=== PATIENT | male | born 1955 | race African-American/Black ===

== ENCOUNTER 2019-04-07 18:25 | Emergency (ER) | payer OTHER ==
[~2019-04-07] VITALS: Ht 172.7 cm; Wt 76.2 kg
[~2019-04-07 18:25] MED LIST: LISI2.5T2 PO; METO50TA7 PO; SIMV-46 PO; TAMS-12 PO
--- NOTE | 2019-04-07 18:40 | NUR ---
MIDSTERNAL CHEST DISCOMFORT, LUE NUMBNESS THAT STARTED LAST NIGHT, 2100. PATIENT A/OX4, BREATHING EVEN AND UNLABORED, NOS OB NOTED, CHANGED INTO GOWN, ATTACHED TO THE LABORER POWERHOUSE. NO DISTRESS NOTED. DR ESPINO AT BEDSIDE FOR EVAL.
--- NOTE | 2019-04-07 18:50 | NUR ---
IV LINE ESTABLISHED, BLOOD DRAWN AND SENT TO LAB.
[2019-04-07] MEDS ORDERED: ASPIRIN 81 MG TAB.CHEW ONE (18:51)
[2019-04-07 18:53] LABS: BASOPHILS % (AUTO) 0.4 % (0.0-2.0); HEMATOCRIT 36 % (39-51); HEMOGLOBIN 11.7 g/dL (13.5-17.5); LYMPHOCYTES # (AUTO) 1.4 /CMM (0.8-4.8); LYMPHOCYTES % (AUTO) 37.8 % (20.0-44.0); MEAN CORPUSCULAR HGB CONC 32 g/dl (31.0-36.0); MEAN CORPUSCULAR VOLUME 86 fL (80-96); MONOCYTES # (AUTO) 0.4 /CMM (0.1-1.30); MONOCYTES % (AUTO) 11.9 % (2.0-12.0); NEUTROPHILS # (AUTO) 1.7 /CMM (1.8-8.9); NEUTROPHILS % (AUTO) 45.9 % (43.0-81.0); PLATELET COUNT (AUTO) 167 /CMM (150-450); RED BLOOD CELL COUNT(AUTO) 4.22 MIL/uL (4.5-6.0); WHITE BLOOD COUNT (AUTO) 3.7 K/uL (4.3-11.0)
--- NOTE | 2019-04-07 18:54 | NUR ---
ASPIRIN 162MG CANCELLED, PER PATIENT HE TOOK ASA 81MG IN AM AND ANOTHER ASA 81MG AT 4PM. DR. ESPINO MADE AWARE AND CANCELLED ORDER FOR ASA.
[2019-04-07] MEDS ORDERED: ASPIRIN 81 MG TAB.CHEW PO ONE (19:00)
[2019-04-07 19:03] LABS: CALCIUM, SERUM 8.4 mg/dL (8.5-10.1); CARBON DIOXIDE 29 mmol/L (21-32); CHLORIDE 106 mmol/L (98-107); CREATININE 1.6 mg/dL (0.6-1.3); GLUCOSE 113 mg/dL (74-106); POTASSIUM 3.7 mmol/L (3.5-5.1); SODIUM SERUM 143 mmol/L (136-145); UREA NITROGEN, BLOOD 14 mg/dL (7-18)
--- NOTE | 2019-04-07 19:13 | NUR ---
Fabian bowling in EDM - 04/07/19 at 2020 by DIONICIO REDRAWN TROPONIN LEVELS AT 2130
--- NOTE | 2019-04-07 19:19 | NUR ---
REPORT GIVEN TO CYNDI COVINGTON.
--- NOTE | 2019-04-07 19:22 | NUR ---
BLOOD DRAW AT 2130 FOR TROPONIN LEVELS
--- NOTE | 2019-04-07 19:22 | NUR ---
PT CAME FROM HOME WITH C/O MIDSTERNAL CHEST, FELT A NUMBNESS THAT RADIATE TO LEFT ARM THAT STARTED LAST NIGHT AROUND 2100. 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 AAOX4. NO SOB. BREATHING EVEN AND UNLABORED. NAD. TROPONIN RESULTS NEGATIVE. CHEST XRAY TAKEN. AWAITING MD ORDERS.
--- NOTE | 2019-04-07 20:19 | NUR ---
WINNIE HURST AT BEDSIDE
--- NOTE | 2019-04-07 23:08 | NUR ---
IV removed. Catheter intact and site benign. Pressure and 4x4 applied to site. No bleeding noted. Patient discharged to home in stable condition. Written and verbal after care instructions given. Patient verbalizes understanding of instruction. ambulatory with a steady gait noted. pt aaox4 no acute distress noted, resp even and unlabored. pt denies pain or discomfort at this time. pt at bedside to take tp home.
[2019-04-07 23:09] VITALS: BP 129/71
== END 2019-04-07 23:09 | disposition home or self-care (01) ==
LOC: ER 18:26
DX: R07.89 Other chest pain (principal); R00.1 Bradycardia, unspecified; I10 Essential (primary) hypertension; E78.5 Hyperlipidemia, unspecified; Z98.890 Other specified postprocedural states; Z79.899 Other long term (current) drug therapy
CPT/HCPCS: 36415; 71045-TC; 80048-TC; 84484-TC; 85025-TC

== ENCOUNTER 2020-02-04 22:33 | Inpatient (IN) | payer OTHER ==
[~2020-02-04] VITALS: Ht 172.7 cm; Wt 77.1 kg
[2020-02-04] MEDS ORDERED: MORPHINE SULFATE INJ 2 MG/ML DISP.SYRIN ONE (23:14)
[2020-02-04] MEDS ORDERED: ONDANSETRON HCL/PF 4 MG/2 ML VIAL ONE (23:14)
--- NOTE | 2020-02-04 23:15 | NUR ---
PT BIBSELF C/O ABDOMINAL CRAMPING X1 DAY. RECENT COLONOSCOPY X4 DAYS AGO. -N/V/D. PT AAOX4,VSS, RESPIRATIONS EVEN AND UNLABORED ON RA W/ NAD NOTED. PT CONNECTED TO THE MONITOR AND POX.
--- NOTE | 2020-02-04 23:20 | NUR ---
BLOOD COLLECTED AND SENT TO LAB
[2020-02-04] MEDS ORDERED: ONDANSETRON HCL/PF 4 MG/2 ML VIAL IVP ONE (23:30)
[2020-02-04] MEDS ORDERED: MORPHINE SULFATE INJ 2 MG/ML DISP.SYRIN IV ONE (23:30)
[2020-02-04] MEDS ORDERED: IV NS 0.9% 1,000 ML BAG IV ONE (23:30)
[2020-02-05 00:28] LABS: BASOPHILS % (AUTO) 0.3 % (0.0-2.0); EOSINOPHILS % (AUTO) 1.8 % (0.0-6.0); HEMATOCRIT 38 % (39-51); HEMOGLOBIN 12.1 g/dL (13.5-17.5); LYMPHOCYTES # (AUTO) 0.3 /CMM (0.8-4.8); LYMPHOCYTES % (AUTO) 8.9 % (20.0-44.0); MEAN CORPUSCULAR HGB CONC 32 g/dl (31.0-36.0); MEAN CORPUSCULAR VOLUME 85 fL (80-96); MONOCYTES # (AUTO) 0.5 /CMM (0.1-1.30); MONOCYTES % (AUTO) 13.1 % (2.0-12.0); NEUTROPHILS # (AUTO) 2.7 /CMM (1.8-8.9); NEUTROPHILS % (AUTO) 75.9 % (43.0-81.0); PLATELET COUNT (AUTO) 143 /CMM (150-450); RED BLOOD CELL COUNT(AUTO) 4.44 MIL/uL (4.5-6.0); WHITE BLOOD COUNT (AUTO) 3.6 K/uL (4.3-11.0)
--- NOTE | 2020-02-05 00:29 | NUR ---
URINE COLLECTED AND SENT TO LAB
[2020-02-05 00:47] LABS: ALANINE AMINOTRANSFERASE 773 U/L (12-78); ALKALINE PHOSPHATASE 139 U/L (46-116); ASPARTATE AMINOTRANSFERASE 1150 U/L (15-37); BILIRUBIN,DIRECT 0.5 mg/dL (0.0-0.2); CALCIUM, SERUM 8.7 mg/dL (8.5-10.1); CARBON DIOXIDE 28 mmol/L (21-32); CHLORIDE 102 mmol/L (98-107); CREATININE 1.5 mg/dL (0.6-1.3); GLUCOSE 102 mg/dL (74-106); LIPASE 229 U/L (73-393); POTASSIUM 4.1 mmol/L (3.5-5.1); SODIUM SERUM 139 mmol/L (136-145); TOTAL PROTEIN, SERUM 7.2 g/dL (6.4-8.2); UREA NITROGEN, BLOOD 13 mg/dL (7-18)
[2020-02-05 00:55] LABS: APPEARANCE,URINE CLEAR (CLEAR); BILIRUBIN,URINE NEGATIVE (NEGATIVE); BLOOD, URINE NEGATIVE Ery/uL (NEGATIVE); COLOR,URINE YELLOW (YELLOW); KETONES,URINE NEGATIVE (NEGATIVE); LEUKOCYTE ESTERASE ,URINE NEGATIVE (NEGATIVE); NITRITE, URINE NEGATIVE (NEGATIVE); PROTEIN,URINE NEGATIVE (NEGATIVE); UGLUCOSE NEGATIVE (NEGATIVE)
--- NOTE | 2020-02-05 00:55 | NUR ---
PT AMBULATED TO THE RESTROOM
[2020-02-05 01:22] LABS: BACTERIA,URINE Rare /HPF (None Seen); RBC,URINE 0-2 /HPF (0-2); SQUAMOUS EPITHELIAL CELL,UR Rare /HPF (None Seen); WBC,URINE 0-2 /HPF (0-3)
--- NOTE | 2020-02-05 01:30 | NUR ---
US AT BEDSIDE
--- NOTE | 2020-02-05 02:12 | NUR ---
COVID NEGATIVE PER MEDICAL AFFAIRS MANAGER.
--- NOTE | 2020-02-05 03:16 | NUR ---
DR. LOONEY SPEAKING WITH DR. JENKINS REGARDING ADMISSION
--- NOTE | 2020-02-05 03:19 | NUR ---
BED ASSIGNMENT 306-1
[2020-02-05] MEDS ORDERED: OMEP20CA15 PO (03:24)
[2020-02-05] MEDS ORDERED: SIMV10TA98 PO (03:25)
[2020-02-05] MEDS ORDERED: ASPI-1169 PO (03:26)
--- NOTE | 2020-02-05 03:28 | NUR ---
REPORT GIVEN TO ADRIA DEE FOR MICHELLE
[2020-02-05 03:45] VITALS: BP 143/103
[2020-02-05] MEDS: IV 1/2NS 1000 ML 1,000 ML IV PRN ×2 (03:46→21:04)
[2020-02-05 03:50] VITALS: BP 143/103
[2020-02-05] MEDS ORDERED: ZOSYN IVPB 4.5 G in IV D5W 50ml IV ONE (04:00)
[2020-02-05] MEDS ORDERED: ONDANSETRON HCL/PF 4 MG/2 ML VIAL IVP PRN (04:00)
[2020-02-05] MEDS ORDERED: PIPERACILLIN /TAZOBACTAM 2.25 G VIAL IV ONE (04:03)
[2020-02-05] MEDS: MORPHINE SULFATE INJ 2 MG/ML DISP.SYRIN IV PRN ×3 (04:11→23:08)
[2020-02-05] MEDS ORDERED: PIPERACILLIN /TAZOBACTAM 4.5 G in IV D5W 50 ML IV SCH (06:00)
--- NOTE | 2020-02-05 06:15 | NUR ---
RECEIVE PT FROM [facility] AT 0345 VIA [facility] ADMIT TO TELEMETRY, SR 60'S HR CARDIAC MONITORING. PT A/O X 4, TOLERATING ROOM AIR, IN STABLE CONDITION COMPLAIN OF ABDOMINAL PAIN. HEAD TO TOE ASSESSMENT IS DONE SKIN IS INTACT. KEPT CLEAN, DRY AND COMFORTABLE. NURSING CARE RENDERED, MAINTAINS NPO. SAFETY MEASURES AT ALL TIMES. WILL ENDORSE PLAN OF CARE.
[2020-02-05 08:00] VITALS: BP 123/79
--- NOTE | 2020-02-05 08:00 | NUR ---
YARDER OPERATOR AM NOTES RECEIVED PT A/O X 4, TOLERATING ROOM AIR, DENIES COMPLAIN OF ABDOMINAL PAIN. SKIN IS INTACT. KEPT CLEAN, DRY AND COMFORTABLE. AMBULATES AD ANDREW WITH STEADY GAIT.MAINTAINS NPO.FOR GI CONSULT. SAFETY MEASURES AT ALL TIMES. CALL LIGHT PLACED WITHIN REACH.
[2020-02-05] MEDS: PANTOPRAZOLE 40 MG VIAL IV SCH (08:46)
[2020-02-05] MEDS: PIPERACILLIN /TAZOBACTAM 3.375 G in IV D5W 50 ML IV SCH ×3 (12:17→23:08)
[2020-02-05] MEDS: ENOXAPARIN SODIUM 40 MG/0.4 ML DISP.SYRIN SQ SCH (12:21)
[2020-02-05 16:00] VITALS: BP_SYST 139; BP_SYST 142; BP_DIAS 80; BP_DIAS 82
--- NOTE | 2020-02-05 17:05 | NUR ---
PT RESTING IN BED COMFORTABLY WITH NO S/S OF PAIN OR DISTRESS. REMAINS ON NPO. TALKING ON HIS CELL PHONE.SEEN BY DR MENDEZ WITH NO NEW ORDER ATH THIS TIME. CALL LIGHT PLACED WITHIN REACH.
--- NOTE | 2020-02-05 19:30 | NUR ---
MS RN RECEIVE PT IN BED A/O X 3 WATCHING TV DENIES PAIN AND NOT IN DISTRESS SAFETY MEASURES AT ALL TIMES, WILL CONT TO MONITOR
[2020-02-05 20:00] VITALS: BP 119/75
[2020-02-05 20:46] VITALS: BP 119/75
[2020-02-06] MEDS: PIPERACILLIN /TAZOBACTAM 3.375 G in IV D5W 50 ML IV SCH ×4 (05:31→23:15)
--- NOTE | 2020-02-06 05:52 | NUR ---
MS RN SLEPT WELL, AFEBRILE, MONITORED ACCORDINGLY. NEEDS ATTENDED AND ANTICIPATED, KEPT CLEAN, DRY AND COMFORTABLE. AM CARE RENDERED, FOR MRCP WO CONTRAST PT AWARE. NPO MIDNIGHT. SAFETY MEASURES AT ALL TIMES. ENDORSE POC.
[2020-02-06 06:53] LABS: BASOPHILS % (AUTO) 0.4 % (0.0-2.0); EOSINOPHILS % (AUTO) 7.4 % (0.0-6.0); HEMATOCRIT 38 % (39-51); HEMOGLOBIN 12.4 g/dL (13.5-17.5); LYMPHOCYTES # (AUTO) 0.9 /CMM (0.8-4.8); MEAN CORPUSCULAR HGB CONC 32 g/dl (31.0-36.0); MEAN CORPUSCULAR VOLUME 85 fL (80-96); MONOCYTES # (AUTO) 0.5 /CMM (0.1-1.30); MONOCYTES % (AUTO) 17.9 % (2.0-12.0); NEUTROPHILS # (AUTO) 1.3 /CMM (1.8-8.9); NEUTROPHILS % (AUTO) 43.3 % (43.0-81.0); PLATELET COUNT (AUTO) 145 /CMM (150-450); RED BLOOD CELL COUNT(AUTO) 4.51 MIL/uL (4.5-6.0); WHITE BLOOD COUNT (AUTO) 2.9 K/uL (4.3-11.0)
--- NOTE | 2020-02-06 07:42 | NUR ---
MS RN NOTES RECEIVED PT IN BED, ASLEEP, EASILY AROUSED, A/OX4. PT TOLERATING RA, WITH NO ACUTE RESPIRATORY DISTRESS NOTED. PT DENIES ANY PAIN OR DISCOMFORT AT THIS TIME. PT DENIES ANY CONCERNS OR QUESTIONS WELL AT THIS MOMENT. PT AWARE OF SCHEDULED MRCP TODAY, ALSO AWARE OF STAYING NPO UNTIL THE PROCEDURE, AND CONSENT TO BE SIGN BEFORE PROCEDURE. IVF 1/2 NS AT 75ML/HR TO LAC G20, INTACT AND FLUID INFUSING WELL. PT KEPT COMFORTABLE. CALL LIGHT KEPT WITHIN REACH. PT'S BED IN LOWEST, LOCKED POSITION WITH SRX3. WILL CONTINUE PLAN OF CARE.
[2020-02-06 08:26] LABS: THYROID STIMULATING HORMONE 0.981 uIU/mL (0.358-3.74)
[2020-02-06 08:27] LABS: ALBUMIN 3.4 g/dL (3.4-5.0); BILIRUBIN,TOTAL 0.8 mg/dL (0.2-1.0); CALCIUM, SERUM 8.6 mg/dL (8.5-10.1); CREATININE 1.6 mg/dL (0.6-1.3); MAGNESIUM 2.2 mg/dL (1.8-2.4); PHOSPHORUS 3.8 mg/dL (2.5-4.9); POTASSIUM 4.2 mmol/L (3.5-5.1); TOTAL PROTEIN, SERUM 6.5 g/dL (6.4-8.2)
[2020-02-06 08:37] VITALS: BP 125/78
[2020-02-06] MEDS: PANTOPRAZOLE 40 MG VIAL IV SCH (08:37)
[2020-02-06] MEDS: ENOXAPARIN SODIUM 40 MG/0.4 ML DISP.SYRIN SQ SCH (09:27)
--- NOTE | 2020-02-06 09:50 | NUR ---
MS RN NOTES CALLED RADIOLOGY AND SPOKE TO ALEX AND STATED THE [facility] UNLOADER WILL COME TODAY AROUND 1030 FOR MRCP, NOTIFIED PT WELL.
--- NOTE | 2020-02-06 10:29 | NUR ---
MS RN NOTES RECEIVED CALL FROM DR. LOVE FOR CONSULT. MD AWARE PT IS FOR MRCP TODAY. HE ADDED HE'LL SEE PT WHEN THE RESULTS COMES BACK. PT MADE AWARE.
[2020-02-06 10:36] LABS: EOSINOPHILS % (MANUAL) 13 % (0-4); LYMPHOCYTES % (MANUAL) 30 % (16-48); MONOCYTES % (MANUAL) 17 % (0-11.0); NEUTROPHILS % (MANUAL) 40 (42-76)
--- NOTE | 2020-02-06 11:07 | NUR ---
MS RN NOTES PT JUST LEFT THE UNIT FOR MRCP PROCEDURE, TRANSPORTED VIA WHEELCHAIR. CONSENT AND CHECKLIST WAS SIGNED BY PT.
--- NOTE | 2020-02-06 11:51 | NUR ---
MS RN NOTES PT JUST CAME BACK FROM MRCP PROCEDURE. WILL CONTINUE PLAN OF CARE.
[2020-02-06] MEDS: ACETAMINOPHEN 325 MG TABLET PO PRN (15:10)
[2020-02-06] MEDS: IV 1/2NS 1000 ML 1,000 ML IV PRN (15:27)
[2020-02-06 16:08] VITALS: BP 133/75
--- NOTE | 2020-02-06 18:50 | NUR ---
MS RN NOTES RECEIVED NEW ORDER FROM DR. LOVE FOR PLAN OF ERCP TOMORROW 1130AM. CHARGE NURSE MADE AWARE WELL. WILL ENDORSE TO INCOMING NIGHT NURSE WELL.
--- NOTE | 2020-02-06 19:30 | NUR ---
RN OPENING NOTES Received patient A/O x4, awake on bed. On RA, no complaints of pain/discomfort at this time. With outgoing RN, witnessed patient's consent for ERCP tomorrow. Instructed patient to kept on NPO after midnight. Pt verbalized understanding. Kept on bed clean, dry and comfortable. Call light within easy reach. On fall precautions, will continue to monitor accordingly.
--- NOTE | 2020-02-06 19:40 | NUR ---
MS RN NOTES PT REMAINS IN BED,AWAKE, A/OX4. PT TOLERATING RA, WITH NO ACUTE RESPIRATORY DISTRESS NOTED. PT DENIES ANY PAIN OR DISCOMFORT AT THIS TIME. PT AWARE OF UPCOMING PROCEDURE TOMORROW ERCP WITH DR. LOVE [id number], INFORMED PT TO BE NPO POST MIDNIGHT WELL. CONSENTS SIGNED BY PT DURING ENDORSEMENT. IVF 1/2 NS AT 75ML/HR TO LAC G20, INTACT AND FLUID INFUSING WELL. PT KEPT COMFORTABLE. ALL NEEDS AND CARE ATTENDED. CALL LIGHT KEPT WITHIN REACH. PT'S BED IN LOWEST, LOCKED POSITION WITH SRX3. ENDORSED TO INCOMING NIGHT NURSE FOR MICHELLE.
[2020-02-06 20:00] VITALS: BP 147/91
[2020-02-07] MEDS: MORPHINE SULFATE INJ 2 MG/ML DISP.SYRIN IV PRN (03:41)
[2020-02-07] MEDS: PIPERACILLIN /TAZOBACTAM 3.375 G in IV D5W 50 ML IV SCH ×4 (05:58→23:21)
[2020-02-07] MEDS: IV 1/2NS 1000 ML 1,000 ML IV PRN (06:02)
--- NOTE | 2020-02-07 07:18 | NUR ---
RN CLOSING NOTES Pt asleep on bed. No new complaints made. Medicated for pain, noted effective. Kept on NPO as ordered. All nursing needs attended, due meds given as ordered. Kept on bed clean, dry and comfortable. Endorsed.
--- NOTE | 2020-02-07 07:30 | NUR ---
MS RN NOTES RECEIVED PT IN BED, ASLEEP, EASILY AROUSED, A/OX4. PT TOLERATING RA, WITH NO ACUTE RESPIRATORY DISTRESS NOTED. PT DENIES ANY PAIN OR DISCOMFORT AT THIS TIME. PT DENIES ANY CONCERNS OR QUESTIONS WELL AT THIS MOMENT. PT AWARE OF SCHEDULED ERCP TODAY, ALSO AWARE OF STAYING NPO UNTIL THE PROCEDURE, AND CONSENTS SIGNED. IVF 1/2 NS AT 75ML/HR TO LAC G20, INTACT AND FLUID INFUSING WELL. PT KEPT COMFORTABLE. CALL LIGHT KEPT WITHIN REACH. PT'S BED IN LOWEST, LOCKED POSITION WITH SRX3. WILL CONTINUE PLAN OF CARE.
[2020-02-07 07:39] LABS: BASOPHILS % (AUTO) 0.5 % (0.0-2.0); EOSINOPHILS % (AUTO) 7.5 % (0.0-6.0); HEMATOCRIT 37 % (39-51); HEMOGLOBIN 12.1 g/dL (13.5-17.5); LYMPHOCYTES # (AUTO) 0.9 /CMM (0.8-4.8); LYMPHOCYTES % (AUTO) 29.5 % (20.0-44.0); MEAN CORPUSCULAR HGB CONC 32 g/dl (31.0-36.0); MEAN CORPUSCULAR VOLUME 84 fL (80-96); MONOCYTES # (AUTO) 0.5 /CMM (0.1-1.30); MONOCYTES % (AUTO) 14.9 % (2.0-12.0); NEUTROPHILS # (AUTO) 1.5 /CMM (1.8-8.9); NEUTROPHILS % (AUTO) 47.6 % (43.0-81.0); PLATELET COUNT (AUTO) 150 /CMM (150-450); RED BLOOD CELL COUNT(AUTO) 4.43 MIL/uL (4.5-6.0); WHITE BLOOD COUNT (AUTO) 3.1 K/uL (4.3-11.0)
[2020-02-07 07:50] LABS: ALBUMIN 3.5 g/dL (3.4-5.0); BILIRUBIN,TOTAL 0.5 mg/dL (0.2-1.0); CALCIUM, SERUM 8.6 mg/dL (8.5-10.1); CREATININE 1.4 mg/dL (0.6-1.3); MAGNESIUM 2.2 mg/dL (1.8-2.4); PHOSPHORUS 3.6 mg/dL (2.5-4.9); POTASSIUM 4.2 mmol/L (3.5-5.1); TOTAL PROTEIN, SERUM 6.9 g/dL (6.4-8.2)
[2020-02-07] MEDS: PANTOPRAZOLE 40 MG VIAL IV SCH (08:31)
[2020-02-07] MEDS: ENOXAPARIN SODIUM 40 MG/0.4 ML DISP.SYRIN SQ SCH (08:32)
[2020-02-07] MEDS ORDERED: ANESTHESIA TRAY IN PYXIS 1 EA TRAY MC ONE (08:36)
[2020-02-07] MEDS ORDERED: INDOMETHACIN 50 MG SUPP.RECT ONE (08:37)
[2020-02-07] MEDS ORDERED: IOHEXOL 240MG/ML 50 ML IV ONE ×2 (08:37→08:38)
[2020-02-07 08:41] VITALS: BP 123/80
--- NOTE | 2020-02-07 09:31 | NUR ---
MS RN NOTES FINAL INSPECTOR MOTORCYLES/OPAL/GLADIS IN THE UNIT, AWARE OF BUN AND CREA RESULT. HE STATED HE'LL RELAY TO DR. MIKE, BUT ALSO ADDED MIGHT PLAN FOR HIM TO HAVE DIALYSIS. CHARGE NURSE/STEVO MADE AWARE WELL. Addendum: 02/07/20 at 0939 by ANA OSWALD RN WRONG DOCUMENTATION ON THIS PATIENT
--- NOTE | 2020-02-07 11:15 | NUR ---
MS RN NOTES PT TRANSPORTED TO [facility] VIA BED FOR ERCP PROCEDURE. PT'S ZOSYN SCHEDULED FOR 1200 ENDORSED TO RN/ZAK, SHE SAID OKAY TO HANG IT DOWNSTAIRS. MEDICINE SCANNED. VS TAKEN AND RECORDED.
[2020-02-07] MEDS ORDERED: FENTANYL PF 100MCG/2ML AMPUL ONE (12:09)
[2020-02-07] MEDS ORDERED: FENTANYL PF 250MCG/5ML AMPUL ONE (12:09)
[2020-02-07 13:35] VITALS: BP 120/90
--- NOTE | 2020-02-07 13:35 | NUR ---
MS RN NOTES PT CAME BACK FROM [facility] PER RR RN/ZAK, DR. LOVE UNABLE TO DO ERCP BECAUSE OF ANATOMICAL STRUCTURE OF PT WITH HISTORY OF MULTIPLE SURGERIES FROM THE PAST. PLAN TO TRANSFER PT SOMEWHERE ELSE, PT MADE AWRE AND CHARGE NURSE MADE AWARE WELL. VS STABLE AND RECORDED.
[2020-02-07 16:16] VITALS: BP 135/88
--- NOTE | 2020-02-07 17:55 | NUR ---
MS RN NOTES SPOKE TO CM/JENIFER AND AWARE OF AND DR. BAIG'S PLAN OF PT BEING TRANSFERRED TO A [facility]. PER JENIFER THEY'RE STILL WORKING ON IT. AWAITING FOR CALL BACK AND WILL ENDORSE TO INCOMING NIGHT NURSE WELL.
--- NOTE | 2020-02-07 18:44 | NUR ---
MS RN NOTES PT REMAINS IN BED, AWAKE, A/OX4. PT TOLERATING RA, WITH NO ACUTE RESPIRATORY DISTRESS NOTED. PT DENIES ANY PAIN OR DISCOMFORT AT THIS TIME. PT AWARE OF POSSIBLE TRANSFER TO ANOTHER HOSPITAL, CM INVOLVED. IVF 1/2 NS AT 75ML/HR TO LAC G18, INTACT AND FLUID INFUSING WELL. ALL NEEDS AND CARE ATTENDED. PT KEPT COMFORTABLE. CALL LIGHT KEPT WITHIN REACH. PT'S BED IN LOWEST, LOCKED POSITION WITH SRX3. WILL ENDORSE TO INCOMING NIGHT NURSE FOR MICHELLE.
--- NOTE | 2020-02-07 19:25 | NUR ---
MS COVINGTON OPEN NOTES PATIENT IS WATCHING TV IN BED. A/O X4. ON RA, NO SOB/ ACUTE RESPIRATORY DISTRESS NOTED. IV IN L AC #18G IS PATENT AND INTACT RUNNING 1/2 NS@ 75 MLS/HR. NO COMPLAINTS OF PAIN AT THE MOMENT. BED IS IN LOWEST LOCKED POSITION WITH SIDE RAILS UP X2, SEMI FOWLERS. CALL LIGHT IS WITHIN REACH. WILL CONTINUE TO MONITOR.
[2020-02-07 20:00] VITALS: BP 138/81
[2020-02-07] MEDS ORDERED: MENTHOL/CETYLPYRD (CEPACOL) 1 LOZ LOZENGE PO PRN (23:40)
[2020-02-08] MEDS: IV 1/2NS 1000 ML 1,000 ML IV PRN ×2 (01:49→20:01)
[2020-02-08] MEDS: PIPERACILLIN /TAZOBACTAM 3.375 G in IV D5W 50 ML IV SCH ×3 (05:31→19:00)
--- NOTE | 2020-02-08 06:48 | NUR ---
MS RN CLOSE NOTES PATIENT IS LAYING IN BED. A/O X4. ON RA, NO SOB/ ACUTE RESPIRATORY DISTRESS NOTED. IV IN L AC #18G IS PATENT AND INTACT RUNNING 1/2 NS@ 75 MLS/HR. HAS NO COMPLAINTS OF PAIN AT THE MOMENT/ APPEARS COMFORTABLE. PT IS AMBULATORY. BED IS IN LOWEST LOCKED POSITION WITH SIDE RAILS UP X2, SEMI FOWLERS. CALL LIGHT IS WITHIN REACH. PT KEPT ON FULL LIQUID DIET. WILL ENDORSE TO AM NURSE.
[2020-02-08 08:00] VITALS: BP 121/81
[2020-02-08] MEDS: PANTOPRAZOLE 40 MG TABLET.DR PO SCH (09:23)
[2020-02-08] MEDS: ENOXAPARIN SODIUM 40 MG/0.4 ML DISP.SYRIN SQ SCH (09:23)
--- NOTE | 2020-02-08 12:25 | NUR ---
former iv removed and restarted in rt. hand with #[id number].
[2020-02-08 16:00] VITALS: BP 149/80
--- NOTE | 2020-02-08 18:30 | NUR ---
pt. alert and oriented x3.denies dizziness,nausea or pain.iv infusing,no complaints offered.
--- NOTE | 2020-02-08 19:30 | NUR ---
MS RN OPENING NOTE PATIENT AWAKE IN BED. A/OX4; AMBULATORY AND ABLE TO VERBALIZE NEEDS. ON RA; DENIES SOB; BREATHING IS EVEN AND UNLABORED. NO C/O PAIN AT THIS TIME. IV PRESENT ON RIGHT HAND, SIZE 22, INTACT & PATENT WITH 1/2 NS RUNNING AT 75 ML/HR. SAFETY MEASURES IN PLACE AND PATIENT'S NEEDS MET. BED LOCKED, HOB ELEVATED, SIDE RAILS X2, CALL LIGHT WITHIN REACH. WILL CONTINUE TO MONITOR.
[2020-02-08 20:00] VITALS: BP 135/83
[2020-02-09] MEDS: PIPERACILLIN /TAZOBACTAM 3.375 G in IV D5W 50 ML IV SCH ×2 (00:05→05:49)
[2020-02-09] MEDS: ACETAMINOPHEN 325 MG TABLET PO PRN (00:13)
[2020-02-09 06:50] LABS: BASOPHILS % (AUTO) 0.6 % (0.0-2.0); EOSINOPHILS % (AUTO) 9.7 % (0.0-6.0); HEMATOCRIT 36 % (39-51); HEMOGLOBIN 11.8 g/dL (13.5-17.5); LYMPHOCYTES % (AUTO) 35.9 % (20.0-44.0); MEAN CORPUSCULAR HGB CONC 33 g/dl (31.0-36.0); MEAN CORPUSCULAR VOLUME 83 fL (80-96); MONOCYTES # (AUTO) 0.4 /CMM (0.1-1.30); MONOCYTES % (AUTO) 15.8 % (2.0-12.0); PLATELET COUNT (AUTO) 159 /CMM (150-450); RED BLOOD CELL COUNT(AUTO) 4.35 MIL/uL (4.5-6.0); WHITE BLOOD COUNT (AUTO) 2.8 K/uL (4.3-11.0)
--- NOTE | 2020-02-09 06:54 | NUR ---
MS RN CLOSING NOTES PATIENT SLEEPING, EASY TO AWAKEN. REMAINED STABLE DURING ENTIRE SHIFT. A/OX4 ON RA; NO SOB OR C/O PAIN. IV PRESENT ON RIGHT HAND, SIZE 22, INTACT & PATENT WITH 1/2 NS RUNNING AT 75 ML/HR. SAFETY MEASURES IN PLACE AND PATIENT'S NEEDS MET. BED LOCKED, HOB ELEVATED, SIDE RAILS X2, CALL LIGHT WITHIN REACH. WILL ENDORSE TO DAY SHIFT RN PLAN OF CARE.
[2020-02-09 07:26] LABS: ALBUMIN 3.5 g/dL (3.4-5.0); BILIRUBIN,TOTAL 0.6 mg/dL (0.2-1.0); CALCIUM, SERUM 8.6 mg/dL (8.5-10.1); CREATININE 1.6 mg/dL (0.6-1.3); MAGNESIUM 2.3 mg/dL (1.8-2.4); PHOSPHORUS 3.4 mg/dL (2.5-4.9); POTASSIUM 3.7 mmol/L (3.5-5.1); TOTAL PROTEIN, SERUM 6.7 g/dL (6.4-8.2)
--- NOTE | 2020-02-09 07:30 | NUR ---
RN Opening Note Received patient in bed, AO x 4, able to responds all stimuli. patient does no c/o pain or distress, respiratory even and unlabored on room air O2sat 97%. Skin is warm to touch, keep clean.dry, intact IV site on right hand G20, running 1/2 NS at 75 ml/hr. Kept bed in locked with elevated HOB for ensure airway and aspiration precaution, and remain lower position of bed for safety. Will continue to monitor.
[2020-02-09] MEDS: PANTOPRAZOLE 40 MG TABLET.DR PO SCH (07:41)
[2020-02-09 08:00] VITALS: BP 138/100
[2020-02-09] MEDS: ENOXAPARIN SODIUM 40 MG/0.4 ML DISP.SYRIN SQ SCH (09:15)
[2020-02-09] MEDS: IV 1/2NS 1000 ML 1,000 ML IV PRN (10:25)
--- NOTE | 2020-02-09 13:47 | NUR ---
Patient transfer to [facility], given report Maeve COVINGTON. 2EMTs picked up patient, pt in stable condition & vital sign and given all documents include DC.
== END 2020-02-09 13:30 | disposition short-term general hospital (02) | DRG 444 ==
LOC: ER 22:36 → TELE 02-05 03:26 → MED 02-05 08:24
PROVIDERS: ADMIT Nurse Practitioner Acute Care; ATTEND Nurse Practitioner Acute Care
PROC: 0DJ08ZZ Inspection of Upper Intestinal Tract, Via Natural or Artificial Opening Endoscopic (ICD-10-PCS; principal; 2020-02-07)
DX: K80.50 Calculus of bile duct without cholangitis or cholecystitis without obstruction (principal); N17.0 Acute kidney failure with tubular necrosis; D61.818 Other pancytopenia; I42.9 Cardiomyopathy, unspecified; I25.10 Atherosclerotic heart disease of native coronary artery without angina pectoris; N40.0 Benign prostatic hyperplasia without lower urinary tract symptoms; D69.6 Thrombocytopenia, unspecified; E78.5 Hyperlipidemia, unspecified; Z90.411 Acquired partial absence of pancreas; Z86.79 Personal history of other diseases of the circulatory system; Z79.899 Other long term (current) drug therapy; I10 Essential (primary) hypertension; E11.9 Type 2 diabetes mellitus without complications; K59.00 Constipation, unspecified; K82.8 Other specified diseases of gallbladder; Z79.82 Long term (current) use of aspirin; R74.0 Nonspecific elevation of levels of transaminase and lactic acid dehydrogenase [LDH]; Z98.890 Other specified postprocedural states; K83.8 Other specified diseases of biliary tract
CPT/HCPCS: 36415; 74181-TC; 76705-TC; 80048-TC; 80053-TC; 80061-TC; 80076-TC; 81000-TC; 83690-TC; 83735-TC; 84100-TC; 84443-TC; 84484-TC; 85025-TC; 85610-TC; 85730-TC; 86850-TC; 87081-TC; 93307-TC; C9113; C9803-CS; G0378; J0330; J1650; J2270; J2405; J2543; J2704; J3010; J3490; J7030; J7060; Q9966

== ENCOUNTER 2024-11-21 10:29 | Inpatient (IN) | payer MEDICARE, OTHER ==
[~2024-11-21] VITALS: Ht 172.7 cm; Wt 70.8 kg
[~2024-11-21 10:29] MED LIST changes: +ASPI-1169 PO; +OMEP20CA15 PO; +SIMV10TA98 PO
[2024-11-21 11:23] LABS: PLATELET COUNT (AUTO) 190 K/uL (150-450); RED BLOOD CELL COUNT(AUTO) 5.18 MIL/uL (4.5-6.0); RED CELL DISTRIBUTION WIDTH 14.1 % (11.5-15.0); WHITE BLOOD COUNT (AUTO) 3.7 K/uL (4.3-11.0)
[2024-11-21 11:37] LABS: ASPARTATE AMINOTRANSFERASE 20 U/L (15-37); CALCIUM, SERUM 8.6 mg/dL (8.5-10.1); CREATININE 1.7 mg/dL (0.6-1.3); SODIUM SERUM 141 mmol/L (136-145); TOTAL PROTEIN, SERUM 7.5 g/dL (6.4-8.2); UREA NITROGEN, BLOOD 18 mg/dL (7-18)
[2024-11-21 13:18] VITALS: BP 109/79; TEMP 97.3; O2SAT 98
[2024-11-21 13:20] VITALS: BP 109/79; TEMP 97.3; O2SAT 98
[2024-11-21] MEDS ORDERED: IV 1/2NS 1000 ML 1,000 ML IV PRN (14:30)
[2024-11-21] MEDS: METOPROLOL SUCCINATE 50 MG TAB.SR.24H PO SCH (14:30)
[2024-11-21] MEDS ORDERED: MAGNESIUM HYDROXIDE 30 ML UDC PO PRN (14:30)
[2024-11-21] MEDS ORDERED: ONDANSETRON HCL/PF 4 MG/2 ML VIAL IVP PRN (14:30)
[2024-11-21] MEDS: IV 1/2NS 1000 ML 1,000 ML IV PRN (15:23)
[2024-11-21] MEDS ORDERED: GABA-532 PO (15:55)
[2024-11-21] MEDS ORDERED: METO25TA4 PO (15:56)
[2024-11-21] MEDS ORDERED: EMPA10TA PO (15:56)
[2024-11-21 16:00] VITALS: BP 124/72; TEMP 97.3; O2SAT 99
[2024-11-21] MEDS: MAG HYDROX/AL HYDROX/SIMETH 30 ML UDC PO PRN (16:00)
[2024-11-21 16:01] LABS: LDL 65 mg/dL (0-99)
[2024-11-21] MEDS: ENOXAPARIN SODIUM 40 MG/0.4 ML DISP.SYRIN SQ SCH (16:01)
[2024-11-21 16:12] VITALS: BP 124/72; TEMP 97.3; O2SAT 99
[2024-11-21 20:00] VITALS: BP 117/72; TEMP 97.5; O2SAT 98
[2024-11-21 21:17] VITALS: BP 117/72; TEMP 97.5; O2SAT 98
[2024-11-21] MEDS: SIMVASTATIN 20 MG TABLET PO SCH (22:00)
[2024-11-22] VITALS: BP 117/75; TEMP 97.7; O2SAT 98
[2024-11-22 04:00] VITALS: BP_SYST 106; BP_SYST 138; BP_DIAS 60; BP_DIAS 79; TEMP 97.9; O2SAT 96; O2SAT 98
[2024-11-22 07:32] LABS: CALCIUM, SERUM 8.8 mg/dL (8.5-10.1); CREATININE 1.6 mg/dL (0.6-1.3); PHOSPHORUS 3.6 mg/dL (2.5-4.9); SODIUM SERUM 140.0 mmol/L (136-145); UREA NITROGEN, BLOOD 15.0 mg/dL (7-18)
[2024-11-22 07:35] LABS: PLATELET COUNT (AUTO) 177 K/uL (150-450); RED BLOOD CELL COUNT(AUTO) 4.65 MIL/uL (4.5-6.0); RED CELL DISTRIBUTION WIDTH 13.4 % (11.5-15.0); WHITE BLOOD COUNT (AUTO) 3.2 K/uL (4.3-11.0)
[2024-11-22] MEDS: ACETAMINOPHEN 325 MG TABLET PO PRN (07:55)
[2024-11-22 07:58] VITALS: BP 108/80; TEMP 97.9; O2SAT 99
[2024-11-22 08:00] VITALS: BP 108/80; TEMP 97.9; O2SAT 99
[2024-11-22] MEDS: TAMSULOSIN 0.4 MG CAP.SR.24H PO SCH (08:08)
[2024-11-22] MEDS: ASPIRIN 81 MG TAB.CHEW PO SCH (08:51)
[2024-11-22] MEDS ORDERED: ASPIRIN 81 MG TAB.CHEW PO SCH (09:00)
[2024-11-22 12:32] VITALS: BP 115/73
[2024-11-22 12:33] VITALS: BP 115/73
[2024-11-22] MEDS: GABAPENTIN 100 MG CAPSULE PO SCH (12:33)
[2024-11-22] MEDS: METOPROLOL SUCCINATE 25 MG TAB.SR.24H PO SCH (12:33)
[2024-11-22] MEDS: EMPAGLIFLOZIN 10 MG TABLET PO SCH (12:33)
[2024-11-23] MEDS ORDERED: PANTOPRAZOLE 40 MG TABLET.DR PO SCH (09:00)
== END 2024-11-22 15:00 | disposition home or self-care (01) | DRG 303 ==
LOC: ER 10:32 → TELE 12:47
DX: I25.119 Atherosclerotic heart disease of native coronary artery with unspecified angina pectoris (principal); B33.22 Viral myocarditis; N17.9 Acute kidney failure, unspecified; I42.9 Cardiomyopathy, unspecified; K21.9 Gastro-esophageal reflux disease without esophagitis; I12.9 Hypertensive chronic kidney disease with stage 1 through stage 4 chronic kidney disease, or unspecified chronic kidney disease; N18.9 Chronic kidney disease, unspecified; N40.0 Benign prostatic hyperplasia without lower urinary tract symptoms; Z98.890 Other specified postprocedural states; Z79.82 Long term (current) use of aspirin; Z79.899 Other long term (current) drug therapy; D63.8 Anemia in other chronic diseases classified elsewhere; E78.5 Hyperlipidemia, unspecified; Z82.49 Family history of ischemic heart disease and other diseases of the circulatory system; Z79.84 Long term (current) use of oral hypoglycemic drugs
CPT/HCPCS: 36415; 71045-TC; 80048-TC; 80061-TC; 80076-TC; 83735-TC; 84100-TC; 84443-TC; 84484-TC; 85025-TC; 85378-TC; 93307-TC; A4223; G0378; J1650; J3490